=== PATIENT | female | born 1995 ===

== ENCOUNTER 2018-11-06 17:50 | Emergency (ER) | payer OTHER ==
[2018-11-06 17:58] VITALS: BMI 22.8
[2018-11-06 18:00] VITALS: RESP 18; O2SAT 99
[2018-11-06 19:24] LABS: SQUAMOUS EPITHIAL 2 /hpf (0-5); URINE BACTERIA RARE (<OCC); URINE BILIRUBIN NEGATIVE (NEGATIVE); URINE BLOOD NEGATIVE (NEGATIVE); URINE CLARITY Clear (Clear); URINE COLOR Yellow (YELLOW); URINE GLUCOSE (UA) NORMAL (Normal); URINE LEUKOCYTE ESTERASE NEG Leu/uL (Negative); URINE PROTEIN NEGATIVE (NEGATIVE); URINE UROBILINOGEN NORMAL mg/dL (0.2-1.0)
--- NOTE | 2018-11-06 19:44 | C.PDOC ---
History Of Present Illness 22 y/o female presents to ED with dysuria and increased frequency and urgency for the past 5 days. Patient has not tried any medications. Denies any hematuria, fever, chills, flank pain, or vaginal symptoms. Denies history of UTIs. Time Seen by Provider: 11/06/18 18:01 Chief Complaint (Nursing): Female Genitourinary History Per: Patient History/Exam Limitations: no limitations Onset/Duration Of Symptoms: Days Current Symptoms Are (Timing): Still Present Past Medical History Reviewed: Historical Data, Nursing Documentation, Vital Signs Vital Signs: Last Vital Signs Temp 99.4 F 11/06/18 17:58 Pulse 83 11/06/18 17:58 Resp 18 11/06/18 17:58 BP 103/65 11/06/18 17:58 Pulse Ox 99 11/06/18 17:58 Primary Care Provider: FAMILY PROVIDER,NO Family History: States: No Known Family Hx - Social History Hx Alcohol Use: No Hx Substance Use: No - Immunization History Hx Tetanus Toxoid Vaccination: No Hx Influenza Vaccination: No Hx Pneumococcal Vaccination: No Review Of Systems Except As Marked, All Systems Reviewed And Found Negative. Constitutional: Negative for: Fever, Chills Gastrointestinal: Negative for: Abdominal Pain Genitourinary: Positive for: Dysuria, Frequency (increased frequency and urgency). Negative for: Vaginal Discharge, Vaginal Bleeding Musculoskeletal: Negative for: Back Pain Physical Exam - Physical Exam Appears: Non-toxic, No Acute Distress Skin: Warm, Dry Head: Normacephalic Eye(s): bilateral: Normal Inspection Oral Mucosa: Moist Neck: Supple Gastrointestinal/Abdominal: Soft, No Tenderness, No Guarding, No Rebound Extremity: Bilateral: Atraumatic, Normal ROM Neurological/Psych: Oriented x3, Normal Speech ED Course And Treatment - Laboratory Results Lab Results: Urine Color Yellow (YELLOW) 11/06/18 19:09 Urine Clarity Clear (Clear) 11/06/18 19:09 Urine pH 6.0 (5.0-8.0) 11/06/18 19:09 Ur Specific Cactus 1.016 (1.003-1.030) 11/06/18 19:09 Urine Protein Negative mg/dL (NEGATIVE) 11/06/18 19:09 Urine Glucose (UA) Normal mg/dL (Normal) 11/06/18 19:09 Urine Ketones Negative mg/dL (NEGATIVE) 11/06/18 19:09 Urine Blood Negative (NEGATIVE) 11/06/18 19:09 Urine Nitrate Negative (NEGATIVE) 11/06/18 19:09 Urine Bilirubin Negative (NEGATIVE) 11/06/18 19:09 Urine Urobilinogen Normal mg/dL (0.2-1.0) 11/06/18 19:09 Ur Leukocyte Esterase Neg Elan/uL (Negative) 11/06/18 19:09 Urine WBC (Auto) < 1 /hpf (0-5) 11/06/18 19:09 Urine RBC (Auto) 1 /hpf (0-3) 11/06/18 19:09 Ur Squamous Epith Cells 2 /hpf (0-5) 11/06/18 19:09 Urine Bacteria Rare (<OCC) 11/06/18 19:09 O2 Sat by Pulse Oximetry: 99 (RA) Pulse Ox Interpretation: Normal Progress Note: UA ordered, normal. Clinical presentation consistent with UTI, patient will be discharged home with antibiotics. Return precautions discussed. Disposition Counseled Patient/Family Regarding: Studies Performed, Diagnosis, Rx Given - Disposition Disposition: HOME/ ROUTINE Disposition Time: 19:41 Condition: STABLE Additional Instructions: You were seen in the ED for a urinary tract infection and prescribed an antibiotic. Please follow up with your PMD within 2-3 days. Return to ED for worsening symptoms, fever, or back pain. 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 - Scribe Statement The provider has reviewed the documentation as recorded by the Nagaibloan Arriola All medical record entries made by the Nagaibloan were at my direction and personally dictated by me. I have reviewed the chart and agree that the record accurately reflects my personal performance of the history, physical exam, medical decision making, and the department course for this patient. I have also personally directed, reviewed, and agree with the discharge instructions and disposition.
[2018-11-06 19:49] VITALS: BP 99/53; PULSE 86; TEMP 98.6
== END 2018-11-06 20:00 | disposition home or self-care (01) ==
LOC: C.ER 17:50
DX: N39.0 Urinary tract infection, site not specified (principal)